=== PATIENT | male | born 1980 | race Caucasian/White ===

== ENCOUNTER → 2016-09-02 | Outpatient (REF) | payer MEDICAID ==
[~2016-09-02] MED LIST: /HALO1T OR; CATA0.3T OR; CETI10TA OR; CHLO200T OR; LUVOX PO; VICO5TAB OR
[2016-09-02 11:43] LABS: MEAN CORPUSCULAR HEMOGLOBIN 30.8 pg (27.0-33.0); MEAN CORPUSCULAR HGB CONC 34.8 g/dl (32.0-36.5); MEAN CORPUSCULAR VOLUME 88.7 fl (80.0-96.0); RED CELL DISTRIBUTION WIDTH 12.9 % (11.5-14.5)
[2016-09-02 12:15] LABS: ALBUMIN 3.6 GM/DL (3.2-5.2); ALBUMIN/GLOBULIN RATIO 0.92 (1.00-1.93); ALKALINE PHOSPHATASE 70 U/L (45-117); ALT/SGPT 44 U/L (12-78); ANION GAP 11 MEQ/L (8-16); AST/SGOT 26 U/L (15-37); BILIRUBIN,TOTAL 0.3 MG/DL (0.2-1.0); BLOOD UREA NITROGEN 15 MG/DL (7-18); CALCIUM LEVEL 8.8 MG/DL (8.5-10.1); CARBON DIOXIDE LEVEL 26 MEQ/L (21-32); CHLORIDE LEVEL 104 MEQ/L (98-107); CHOLESTEROL LEVEL 198 MG/DL (<200); CREATININE FOR GFR 0.95 MG/DL (0.70-1.30); GLOMERULAR FILTRATION RATE > 60.0 (>60); GLUCOSE, FASTING 81 MG/DL (70-105); POTASSIUM SERUM 4.3 MEQ/L (3.5-5.1); SODIUM LEVEL 141 MEQ/L (136-145); TOTAL PROTEIN 7.5 GM/DL (6.4-8.2); TRIGLYCERIDES LEVEL 297 MG/DL (<150)
== END ==
LOC: M SFHCPLAZ 09:33
PROVIDERS: ATTEND Family Medicine
DX: G47.33 Obstructive sleep apnea (adult) (pediatric) (principal); J30.9 Allergic rhinitis, unspecified; E78.5 Hyperlipidemia, unspecified; Z68.42 Body mass index [BMI] 45.0-49.9, adult

== ENCOUNTER 2016-11-10 18:38 | Emergency (ER) | payer MEDICAID ==
[~2016-11-10] VITALS: Ht 162.6 cm; Wt 119.7 kg
[2016-11-10] MEDS ORDERED: CLON-412 (18:51)
[2016-11-10] MEDS ORDERED: SIMV10TA2 (18:51)
[2016-11-10] MEDS ORDERED: HYDR-4274 (18:51)
[2016-11-10] MEDS ORDERED: DIVA500T9 (18:51)
[2016-11-10] MEDS ORDERED: CLOM50CA3 (18:51)
[2016-11-10] MEDS ORDERED: OLAN10TA2 (18:51)
[2016-11-10] MEDS ORDERED: RISP3TAB3 (18:51)
[2016-11-10] MEDS ORDERED: CEPH500C (18:51)
[2016-11-10] MEDS ORDERED: AUGMENTIN 875 MG TAB PO ONE (21:15)
[2016-11-10] MEDS ORDERED: ACETAMINOPH W/CODEINE #3 TAB UD PO ONE (21:15)
[2016-11-10] MEDS ORDERED: ACET30TAB PO (21:18)
[2016-11-10] MEDS ORDERED: AUGM875T27 PO (21:18)
[2016-11-10 21:24] VITALS: BP 154/86
== END 2016-11-10 21:31 | disposition home or self-care (01) ==
LOC: M ED 19:50
DX: L03.114 Cellulitis of left upper limb (principal); F79 Unspecified intellectual disabilities; E66.01 Morbid (severe) obesity due to excess calories; E78.00 Pure hypercholesterolemia, unspecified; Z79.899 Other long term (current) drug therapy; Z79.2 Long term (current) use of antibiotics

== ENCOUNTER 2016-11-15 11:59 | Emergency (ER) | payer MEDICAID ==
[~2016-11-15] VITALS: Ht 162.6 cm; Wt 119.7 kg
[2016-11-15 11:59] VITALS: BP 123/81
[~2016-11-15 11:59] MED LIST changes: +ACET30TAB PO; +AUGM875T27 PO; +CEPH500C; +CLOM50CA3; +CLON-412; +DIVA500T9; +HYDR-4274; +OLAN10TA2; +RISP3TAB3; +SIMV10TA2
[2016-11-15] MEDS ORDERED: SENN8.6T10 (12:12)
[2016-11-15] MEDS ORDERED: CLINDAMYCIN 150 MG CAP PO ONE (14:00)
[2016-11-15] MEDS ORDERED: CLEO300C2 PO (14:02)
== END 2016-11-15 14:51 | disposition home or self-care (01) ==
LOC: M ED 14:10
DX: L03.114 Cellulitis of left upper limb (principal); F79 Unspecified intellectual disabilities; G47.33 Obstructive sleep apnea (adult) (pediatric); F42.9 Obsessive-compulsive disorder, unspecified; F95.2 Tourette's disorder; Z79.899 Other long term (current) drug therapy

== ENCOUNTER → 2016-11-25 | Outpatient (CLI) | payer MEDICAID ==
[~2016-11-25] MED LIST changes: +CLEO300C2 PO; +SENN8.6T10
--- NOTE | 2016-11-25 15:29 | REP ---
KUB, TWO VIEWS: HISTORY: Constipation. Air is present in small and large intestine. There are no air fluid levels or dilated loops of intestine. There is no pneumoperitoneum. A large quantity of stool is present in the colon. IMPRESSION: 1. Nonspecific bowel gas pattern. 2. There is a large quantity of stool in the colon. Signed by Eleuterio Heck MD 11/25/2016 03:37 P
== END ==
LOC: M RAD 14:44
PROVIDERS: ATTEND Nurse Practitioner Family
DX: K59.00 Constipation, unspecified (principal)

== ENCOUNTER 2016-12-13 18:18 | Emergency (ER) | payer MEDICAID ==
[~2016-12-13] VITALS: Ht 162.6 cm; Wt 118.8 kg
[2016-12-13] MEDS ORDERED: BACT800T5 PO (22:13)
[2016-12-13 22:30] VITALS: BP 150/90
== END 2016-12-13 22:34 | disposition home or self-care (01) ==
LOC: M ED 22:04
DX: L03.113 Cellulitis of right upper limb (principal); S61.411A Laceration without foreign body of right hand, initial encounter; W45.8XXA Other foreign body or object entering through skin, initial encounter; Y92.832 Beach as the place of occurrence of the external cause; Y93.9 Activity, unspecified; Y99.9 Unspecified external cause status; F79 Unspecified intellectual disabilities; E66.9 Obesity, unspecified; Z79.899 Other long term (current) drug therapy

== ENCOUNTER → 2017-09-08 | Outpatient (REF) | payer MEDICAID ==
[2017-09-08 13:10] LABS: ALBUMIN 3.8 GM/DL (3.2-5.2); ALBUMIN/GLOBULIN RATIO 1.09 (1.00-1.93); ALKALINE PHOSPHATASE 72 U/L (45-117); ALT/SGPT 51 U/L (12-78); ANION GAP 8 MEQ/L (8-16); AST/SGOT 24 U/L (7-37); BILIRUBIN,TOTAL 0.4 MG/DL (0.2-1.0); BLOOD UREA NITROGEN 12 MG/DL (7-18); CALCIUM LEVEL 8.7 MG/DL (8.5-10.1); CARBON DIOXIDE LEVEL 26 MEQ/L (21-32); CHLORIDE LEVEL 106 MEQ/L (98-107); CHOLESTEROL LEVEL 180 MG/DL (<200); CREATININE FOR GFR 0.83 MG/DL (0.70-1.30); GLOMERULAR FILTRATION RATE > 60.0 (>60); GLUCOSE, FASTING 77 MG/DL (70-100); HDL CHOLESTEROL 36 MG/DL (>40); LDL CHOLESTEROL 86.8 MG/DL (<100); NON-HDL-C 144 MG/DL; POTASSIUM SERUM 4.4 MEQ/L (3.5-5.1); SODIUM LEVEL 140 MEQ/L (136-145); TOTAL PROTEIN 7.3 GM/DL (6.4-8.2); TRIGLYCERIDES LEVEL 286 MG/DL (<150)
[2017-09-08 13:11] LABS: HEMATOCRIT 43.2 % (42.0-52.0); HEMOGLOBIN 14.9 g/dl (14.0-18.0); MEAN CORPUSCULAR HEMOGLOBIN 29.7 pg (27.0-33.0); MEAN CORPUSCULAR HGB CONC 34.5 g/dl (32.0-36.5); MEAN CORPUSCULAR VOLUME 86.1 fl (80.0-96.0); PLATELET COUNT, AUTOMATED 184 10^3/uL (150-450); RED BLOOD COUNT 5.02 10^6/uL (4.30-6.10); RED CELL DISTRIBUTION WIDTH 13.1 % (11.5-14.5); WHITE BLOOD COUNT 5.4 10^3/uL (4.0-10.0)
== END ==
LOC: M SFHCPLAZ 08:18
DX: G47.33 Obstructive sleep apnea (adult) (pediatric) (principal); J30.9 Allergic rhinitis, unspecified; Z68.42 Body mass index [BMI] 45.0-49.9, adult

== ENCOUNTER 2018-03-07 12:41 | Emergency (ER) | payer MEDICARE, MEDICAID | END 2018-03-07 15:13 | disposition home or self-care (01) | LOC: M ED 12:41 | DX: K59.00 Constipation, unspecified (principal); F95.2 Tourette's disorder; F79 Unspecified intellectual disabilities; Z79.899 Other long term (current) drug therapy | CPT/HCPCS: 74018 ==

== ENCOUNTER → 2018-05-02 | Outpatient (REF) | payer MEDICARE, MEDICAID ==
[2018-05-02 22:25] LABS: APPEARANCE, URINE HAZY (CLEAR); BACTERIA, URINE AUTO NEGATIVE (NEGATIVE); BILIRUBIN, URINE AUTO NEGATIVE (NEGATIVE); BLOOD, URINE BLOOD 2+ (NEGATIVE); CALCIUM OXALATE CRYSTALS SMALL; COLOR, URINE YELLOW (YELLOW); GLUCOSE, URINE (UA) AUTO NEGATIVE (NEGATIVE); KETONE, URINE AUTO TRACE mg/dL (NEGATIVE); LEUKOCYTE ESTERASE, URINE AUTO NEGATIVE (NEGATIVE); MUCUS, URINE SMALL (NEGATIVE); NITRITE, URINE AUTO NEGATIVE (NEGATIVE); PROTEIN, URINE AUTO 1+ mg/dL (NEGATIVE); RBC, URINE AUTO 26 /HPF (0-3); SQUAMOUS EPITHELIAL CELL UR AU 0 /HPF (0-6); WBC, URINE AUTO 0 /HPF (0-3)
== END ==
LOC: M LAB REF 22:06
DX: N39.0 Urinary tract infection, site not specified (principal)

== ENCOUNTER → 2018-05-02 | Outpatient (CLI) | payer MEDICARE, MEDICAID ==
[2018-05-02 20:25] LABS: PLATELET COUNT, AUTOMATED 191 10^3/uL (150-450)
[2018-05-02 20:58] LABS: ALBUMIN 3.6 GM/DL (3.2-5.2); ALBUMIN/GLOBULIN RATIO 1.13 (1.00-1.93); ALKALINE PHOSPHATASE 78 U/L (45-117); ALT/SGPT 40 U/L (12-78); AST/SGOT 19 U/L (7-37); BILIRUBIN,DIRECT < 0.1 MG/DL (0.0-0.2); BILIRUBIN,TOTAL 0.2 MG/DL (0.2-1.0); TOTAL PROTEIN 6.8 GM/DL (6.4-8.2); VALPROIC ACID (DEPAKOTE) 51.5 UG/ML (50.0-100.0)
== END ==
LOC: M LAB 19:39
DX: N39.0 Urinary tract infection, site not specified (principal); Z79.899 Other long term (current) drug therapy
CPT/HCPCS: 80164

== ENCOUNTER → 2018-05-05 | Outpatient (REF) | payer MEDICARE, MEDICAID ==
[2018-05-05 17:33] LABS: ALBUMIN 4.1 GM/DL (3.2-5.2); ANION GAP 7 MEQ/L (8-16); BLOOD UREA NITROGEN 10 MG/DL (7-18); CALCIUM LEVEL 9.3 MG/DL (8.5-10.1); CARBON DIOXIDE LEVEL 27 MEQ/L (21-32); CHLORIDE LEVEL 106 MEQ/L (98-107); CREATININE FOR GFR 0.86 MG/DL (0.70-1.30); GLOMERULAR FILTRATION RATE > 60.0 (>60); GLUCOSE, FASTING 63 MG/DL (70-100); PHOSPHORUS LEVEL 3.5 MG/DL (2.5-4.9); POTASSIUM SERUM 4.2 MEQ/L (3.5-5.1); SODIUM LEVEL 140 MEQ/L (136-145)
[2018-05-05 17:41] LABS: APPEARANCE, URINE CLEAR (CLEAR); BACTERIA, URINE AUTO NEGATIVE (NEGATIVE); BILIRUBIN, URINE AUTO NEGATIVE (NEGATIVE); BLOOD, URINE BLOOD NEGATIVE (NEGATIVE); COLOR, URINE YELLOW (YELLOW); GLUCOSE, URINE (UA) AUTO 1+ mg/dL (NEGATIVE); KETONE, URINE AUTO TRACE mg/dL (NEGATIVE); LEUKOCYTE ESTERASE, URINE AUTO NEGATIVE (NEGATIVE); MUCUS, URINE SMALL (NEGATIVE); NITRITE, URINE AUTO NEGATIVE (NEGATIVE); PROTEIN, URINE AUTO NEGATIVE (NEGATIVE); RBC, URINE AUTO 3 /HPF (0-3); SPECIFIC GRAVITY URINE AUTO 1.023 (1.002-1.035); SQUAMOUS EPITHELIAL CELL UR AU 0 /HPF (0-6); WBC, URINE AUTO 0 /HPF (0-3)
== END ==
LOC: M SFHCPLAZ 15:08
DX: R31.21 Asymptomatic microscopic hematuria (principal); Z23 Encounter for immunization
CPT/HCPCS: 80069

== ENCOUNTER → 2018-09-11 | Outpatient (REF) | payer MEDICARE, MEDICAID ==
[~2018-09-11] MED LIST changes: -AUGM875T27 PO; +AUGM875T28 PO; +BACT800T5 PO; -HYDR-4274; +HYDR50TA70; +MIRA3350 PO; +SENN1TAB10; -SENN8.6T10
[2018-09-11 20:29] LABS: APPEARANCE, URINE HAZY (CLEAR); BACTERIA, URINE AUTO NEGATIVE (NEGATIVE); BILIRUBIN, URINE AUTO NEGATIVE (NEGATIVE); BLOOD, URINE BLOOD NEGATIVE (NEGATIVE); CALCIUM OXALATE CRYSTALS MODERATE; COLOR, URINE YELLOW (YELLOW); GLUCOSE, URINE (UA) AUTO NEGATIVE (NEGATIVE); KETONE, URINE AUTO NEGATIVE (NEGATIVE); LEUKOCYTE ESTERASE, URINE AUTO NEGATIVE (NEGATIVE); MUCUS, URINE SMALL (NEGATIVE); NITRITE, URINE AUTO NEGATIVE (NEGATIVE); PROTEIN, URINE AUTO 1+ mg/dL (NEGATIVE); RBC, URINE AUTO 0 /HPF (0-3); SPECIFIC GRAVITY URINE AUTO 1.028 (1.002-1.035); SQUAMOUS EPITHELIAL CELL UR AU 0 /HPF (0-6); WBC, URINE AUTO 2 /HPF (0-3)
== END ==
LOC: M LAB REF 10:38
PROVIDERS: ATTEND Physician Assistant Medical
DX: N39.0 Urinary tract infection, site not specified (principal)

== ENCOUNTER → 2019-05-14 | Outpatient (REF) | payer MEDICARE, MEDICAID ==
[~2019-05-14] MED LIST changes: -/HALO1T OR; +ACET-716 PO; -ACET30TAB PO; +HALO1TAB20 OR
[2019-05-14 10:45] LABS: ALBUMIN 3.6 GM/DL (3.2-5.2); ALT/SGPT 35 U/L (12-78); BILIRUBIN,TOTAL 0.3 MG/DL (0.2-1.0); BLOOD UREA NITROGEN 14 MG/DL (7-18); CARBON DIOXIDE LEVEL 27 MEQ/L (21-32); CHLORIDE LEVEL 106 MEQ/L (98-107); CHOLESTEROL LEVEL 196 MG/DL (<200); CREATININE FOR GFR 0.91 MG/DL (0.70-1.30); GLOMERULAR FILTRATION RATE > 60.0 (>60); GLUCOSE, FASTING 90 MG/DL (70-100); HDL CHOLESTEROL 40 MG/DL (>40); LDL CHOLESTEROL 95 MG/DL (<100); NON-HDL-C 156 MG/DL; POTASSIUM SERUM 4.3 MEQ/L (3.5-5.1); SODIUM LEVEL 141 MEQ/L (136-145); TRIGLYCERIDES LEVEL 304 MG/DL (<150)
== END ==
LOC: M SFHCPLAZ 08:12
PROVIDERS: ATTEND Family Medicine
DX: E78.5 Hyperlipidemia, unspecified (principal); G47.33 Obstructive sleep apnea (adult) (pediatric); Z68.42 Body mass index [BMI] 45.0-49.9, adult

== ENCOUNTER 2020-05-19 14:45 | Emergency (ER) | payer MEDICARE, MEDICAID ==
[~2020-05-19] VITALS: Ht 162.6 cm; Wt 115.9 kg
[~2020-05-19 14:45] MED LIST changes: -SIMV10TA2; +SIMV10TA21
--- NOTE | 2020-05-19 15:30 | REP ---
INDICATION: constipation x1wk r/o obstruction. COMPARISON: 03/07/2018 FINDINGS: KUB shows the intestinal gas pattern to be nonspecific. The organ silhouettes insofar as delineated are unremarkable. There is no evidence of free intraperitoneal air. There is a large amount of content in the region of the descending colon, sigmoid colon, and rectosigmoid region. IMPRESSION: Findings consistent with clinical constipation. Fecal impaction cannot be ruled out. <Electronically signed by Ezra Magdaleno > 05/19/20 1524
[2020-05-19 16:12] LABS: BASO % 0.1 % (0.0-1.0); HEMATOCRIT 47.6 % (42.0-52.0); HEMOGLOBIN 16.7 g/dl (13.5-17.5); LYMPH # 2.7 10^3/uL (1.5-5.0); MEAN CORPUSCULAR HEMOGLOBIN 29.8 pg (27.0-33.0); MEAN CORPUSCULAR HGB CONC 35.1 g/dl (32.0-36.5); MONO # 0.5 10^3/uL (0.0-0.8); MONO % 7.1 % (0.0-5.0); NEUTROPHILS # 3.9 10^3/uL (1.5-8.5); NEUTROPHILS % 54.1 % (36.0-66.0); PLATELET COUNT, AUTOMATED 207 10^3/uL (150-450); WHITE BLOOD COUNT 7.2 10^3/uL (4.0-10.0)
[2020-05-19 16:36] LABS: ALBUMIN 4.2 GM/DL (3.2-5.2); ALT/SGPT 36 U/L (12-78); BILIRUBIN,DIRECT 0.1 MG/DL (0.0-0.2); BILIRUBIN,TOTAL 0.5 MG/DL (0.2-1.0); BLOOD UREA NITROGEN 17 MG/DL (7-18); CARBON DIOXIDE LEVEL 24 MEQ/L (21-32); CHLORIDE LEVEL 108 MEQ/L (98-107); CREATININE FOR GFR 1.01 MG/DL (0.70-1.30); GLOMERULAR FILTRATION RATE > 60.0 (>60); GLUCOSE, FASTING 98 MG/DL (70-100); LIPASE 144 U/L (73-393); POTASSIUM SERUM 4.2 MEQ/L (3.5-5.1); SODIUM LEVEL 140 MEQ/L (136-145); TOTAL PROTEIN 7.4 GM/DL (6.4-8.2)
[2020-05-19] MEDS ORDERED: MAGNESIUM CITRATE 300 ML BTL PO ONE (17:00)
[2020-05-19] MEDS ORDERED: GLYCERIN ADULT SUPP PR ONE (17:00)
[2020-05-19] MEDS ORDERED: COLA100C5 PO (17:04)
[2020-05-19] MEDS ORDERED: MIRA3350 PO (17:46)
[2020-05-19 18:00] VITALS: BP 133/86
== END 2020-05-19 18:10 | disposition home or self-care (01) ==
LOC: M ED 14:45
DX: K59.09 Other constipation (principal); R11.0 Nausea; F90.9 Attention-deficit hyperactivity disorder, unspecified type; F42.9 Obsessive-compulsive disorder, unspecified; F79 Unspecified intellectual disabilities; F95.2 Tourette's disorder; Z79.899 Other long term (current) drug therapy

== ENCOUNTER → 2020-05-27 | Outpatient (REF) | payer MEDICARE, MEDICAID ==
[~2020-05-27] MED LIST changes: +COLA100C5 PO
[2020-05-27 12:38] LABS: HEMATOCRIT 47.4 % (42.0-52.0); HEMOGLOBIN 16.3 g/dl (13.5-17.5); MEAN CORPUSCULAR HEMOGLOBIN 30.2 pg (27.0-33.0); MEAN CORPUSCULAR HGB CONC 34.4 g/dl (32.0-36.5); MEAN CORPUSCULAR VOLUME 87.8 fl (80.0-96.0); PLATELET COUNT, AUTOMATED 189 10^3/uL (150-450); WHITE BLOOD COUNT 5.3 10^3/uL (4.0-10.0)
[2020-05-27 13:27] LABS: ALT/SGPT 36 U/L (12-78); BILIRUBIN,TOTAL 0.4 MG/DL (0.2-1.0); BLOOD UREA NITROGEN 13 MG/DL (7-18); CALCIUM LEVEL 8.9 MG/DL (8.5-10.1); CARBON DIOXIDE LEVEL 27 MEQ/L (21-32); CHLORIDE LEVEL 105 MEQ/L (98-107); CHOLESTEROL LEVEL 217 MG/DL (<200); CREATININE FOR GFR 1.02 MG/DL (0.70-1.30); GLOMERULAR FILTRATION RATE > 60.0 (>60); GLUCOSE, FASTING 86 MG/DL (70-100); HDL CHOLESTEROL 38 MG/DL (>40); LDL CHOLESTEROL 117 MG/DL (<100); NON-HDL-C 179 MG/DL; POTASSIUM SERUM 4.2 MEQ/L (3.5-5.1); SODIUM LEVEL 140 MEQ/L (136-145); THYROID STIMULATING HORMONE 0.986 uIU/ML (0.358-3.740); TOTAL PROTEIN 7.4 GM/DL (6.4-8.2); TRIGLYCERIDES LEVEL 310 MG/DL (<150)
== END ==
LOC: M PLALAB 10:32
PROVIDERS: ATTEND Family Medicine
DX: F60.89 Other specific personality disorders (principal); G47.33 Obstructive sleep apnea (adult) (pediatric); E78.5 Hyperlipidemia, unspecified; E66.01 Morbid (severe) obesity due to excess calories

== ENCOUNTER → 2021-06-01 | Outpatient (REF) | payer MEDICARE, MEDICAID ==
[~2021-06-01] MED LIST changes: -OLAN10TA2; +OLAN1TAB20; +RISP-10; -RISP3TAB3
[2021-06-01 18:07] LABS: HEMOGLOBIN A1c 5.6 %
[2021-06-01 18:19] LABS: ALBUMIN 3.8 GM/DL (3.2-5.2); ALT/SGPT 31 U/L (12-78); BILIRUBIN,TOTAL 0.3 MG/DL (0.2-1.0); BLOOD UREA NITROGEN 13 MG/DL (7-18); CALCIUM LEVEL 9.1 MG/DL (8.5-10.1); CARBON DIOXIDE LEVEL 25 MEQ/L (21-32); CHLORIDE LEVEL 106 MEQ/L (98-107); CHOLESTEROL LEVEL 189 MG/DL (<200); CHOLESTEROL RISK RATIO 4.973 (<5); CREATININE FOR GFR 0.85 MG/DL (0.70-1.30); GLOMERULAR FILTRATION RATE > 60.0 (>60); GLUCOSE, FASTING 96 MG/DL (70-100); HDL CHOLESTEROL 38 MG/DL (>40); LDL CHOLESTEROL 102 MG/DL (<100); NON-HDL-C 151 MG/DL; POTASSIUM SERUM 4.5 MEQ/L (3.5-5.1); SODIUM LEVEL 140 MEQ/L (136-145); TOTAL PROTEIN 7.5 GM/DL (6.4-8.2); TRIGLYCERIDES LEVEL 245 MG/DL (<150)
== END ==
LOC: M SFHCADAM 13:43
PROVIDERS: ATTEND Family Medicine
DX: E78.5 Hyperlipidemia, unspecified (principal); Z13.1 Encounter for screening for diabetes mellitus; E66.01 Morbid (severe) obesity due to excess calories; F60.89 Other specific personality disorders

== ENCOUNTER → 2021-11-24 | Outpatient (CLI) | payer MEDICARE, MEDICAID ==
[2021-11-24 18:05] LABS: BASO % 0.3 % (0.0-1.0); EOS % 0.2 % (0.0-3.0); HEMATOCRIT 41.3 % (42.0-52.0); HEMOGLOBIN 14.1 g/dl (13.5-17.5); LYMPH % 31.3 % (24.0-44.0); MEAN CORPUSCULAR HEMOGLOBIN 29.9 pg (27.0-33.0); MEAN CORPUSCULAR HGB CONC 34.1 g/dl (32.0-36.5); MEAN CORPUSCULAR VOLUME 87.7 fl (80.0-96.0); MONO # 0.4 10^3/uL (0.0-0.8); MONO % 6.7 % (2.0-8.0); NEUTROPHILS # 3.9 10^3/uL (1.5-8.5); NEUTROPHILS % 60.4 % (36.0-66.0); PLATELET COUNT, AUTOMATED 202 10^3/uL (150-450); RED BLOOD COUNT 4.71 10^6/uL (4.30-6.10); WHITE BLOOD COUNT 6.4 10^3/uL (4.0-10.0)
[2021-11-24 18:30] LABS: ALBUMIN 3.7 GM/DL (3.2-5.2); ALT/SGPT 26 U/L (12-78); BILIRUBIN,TOTAL 0.2 MG/DL (0.2-1.0); BLOOD UREA NITROGEN 13 MG/DL (7-18); CALCIUM LEVEL 9.4 MG/DL (8.5-10.1); CARBON DIOXIDE LEVEL 26 MEQ/L (21-32); CHLORIDE LEVEL 108 MEQ/L (98-107); CREATININE FOR GFR 0.82 MG/DL (0.70-1.30); FREE T4 0.72 NG/DL (0.76-1.46); GLOMERULAR FILTRATION RATE > 60.0 (>60); GLUCOSE, FASTING 96 MG/DL (70-100); POTASSIUM SERUM 4.5 MEQ/L (3.5-5.1); SODIUM LEVEL 136 MEQ/L (136-145); TOTAL PROTEIN 7.5 GM/DL (6.4-8.2)
[2021-11-25 11:09] LABS: APPEARANCE, URINE CLEAR (CLEAR); BACTERIA, URINE AUTO NEGATIVE (NEGATIVE); BILIRUBIN, URINE AUTO NEGATIVE (NEGATIVE); BLOOD, URINE BLOOD NEGATIVE (NEGATIVE); COLOR, URINE YELLOW (YELLOW); GLUCOSE, URINE (UA) AUTO 3+ mg/dL (NEGATIVE); KETONE, URINE AUTO TRACE mg/dL (NEGATIVE); LEUKOCYTE ESTERASE, URINE AUTO NEGATIVE (NEGATIVE); MUCUS, URINE SMALL (NEGATIVE); NITRITE, URINE AUTO NEGATIVE (NEGATIVE); PROTEIN, URINE AUTO NEGATIVE (NEGATIVE); RBC, URINE AUTO 1 /HPF (0-3); SPECIFIC GRAVITY URINE AUTO 1.022 (1.002-1.035); SQUAMOUS EPITHELIAL CELL UR AU 0 /HPF (0-6); WBC, URINE AUTO 0 /HPF (0-3)
== END ==
LOC: M LAB 17:29
PROVIDERS: ATTEND Physician Assistant
DX: R30.0 Dysuria (principal); R81 Glycosuria; Z79.899 Other long term (current) drug therapy

== ENCOUNTER → 2022-06-04 | Outpatient (REF) | payer MEDICARE, MEDICAID | LOC: M SFHCPLAZ 16:47 | PROVIDERS: ATTEND Physician Assistant | DX: R30.0 Dysuria (principal) ==

== ENCOUNTER → 2022-06-12 | Outpatient (CLI) | payer MEDICARE, MEDICAID ==
[2022-06-12 14:31] LABS: CREATININE, URINE 233.7 MG/DL
[2022-06-12 14:36] LABS: ALBUMIN 4.1 G/DL (3.2-5.2); ALKALINE PHOSPHATASE 96 U/L (46-116); ALT/SGPT 31 U/L (7.0-40); AST/SGOT 19 U/L (<34); BILIRUBIN,TOTAL 0.4 MG/DL (0.3-1.2); BLOOD UREA NITROGEN 13 MG/DL (9-23); CALCIUM LEVEL 9.6 MG/DL (8.5-10.1); CARBON DIOXIDE LEVEL 25 MMOL/L (20-31); CHLORIDE LEVEL 102 MMOL/L (98-107); CHOLESTEROL LEVEL 221 MG/DL (<200); CHOLESTEROL RISK RATIO 5.23 (<5); CREATININE FOR GFR 0.75 MG/DL (0.70-1.30); GLOMERULAR FILTRATION RATE > 60.0 (>60); GLUCOSE, FASTING 101 MG/DL (60-100); HDL CHOLESTEROL 42.2 MG/DL (>40); NON-HDL-C 179 MG/DL; POTASSIUM SERUM 4.4 MMOL/L (3.5-5.1); SODIUM LEVEL 138 MMOL/L (136-145); TOTAL PROTEIN 7.7 G/DL (5.7-8.2); TRIGLYCERIDES LEVEL 339 MG/DL (<150)
[2022-06-12 14:38] LABS: FREE T4 0.71 NG/DL (0.89-1.76); THYROID STIMULATING HORMONE 0.897 uIU/ML (0.55-4.78)
[2022-06-12 19:05] LABS: HEMOGLOBIN A1c 5.7 % (4.0-6.0)
== END ==
LOC: M LAB 13:28
PROVIDERS: ATTEND Family Medicine
DX: R73.01 Impaired fasting glucose (principal); Z13.1 Encounter for screening for diabetes mellitus; E78.5 Hyperlipidemia, unspecified; I10 Essential (primary) hypertension; Z13.29 Encounter for screening for other suspected endocrine disorder

== ENCOUNTER → 2024-01-10 | Outpatient (REF) | payer MEDICARE, MEDICAID ==
[~2024-01-10] MED LIST changes: +CLOM1CAP4; -CLOM50CA3; -RISP-10; +RISP3TAB77
== END ==
LOC: M SFHCPLAZ 12:17
PROVIDERS: ATTEND Student in an Organized Health Care Education/Training Program
DX: J00 Acute nasopharyngitis [common cold] (principal)

== ENCOUNTER → 2024-01-24 | Outpatient (REF) | payer MEDICARE, MEDICAID ==
[2024-01-24 13:12] LABS: HEMATOCRIT 45.2 % (42.0-52.0); MEAN CORPUSCULAR HEMOGLOBIN 29.4 pg (27.0-33.0); MEAN CORPUSCULAR HGB CONC 33.2 g/dl (32.0-36.5); MEAN CORPUSCULAR VOLUME 88.6 fl (80.0-96.0); PLATELET COUNT, AUTOMATED 221 10^3/uL (150-450)
[2024-01-24 13:22] LABS: HEMOGLOBIN A1c 5.9 % (4.0-6.0)
[2024-01-24 13:35] LABS: THYROID STIMULATING HORMONE 1.259 uIU/ML (0.55-4.78)
[2024-01-24 13:36] LABS: ALKALINE PHOSPHATASE 86 U/L (46-116); ALT/SGPT 34 U/L (7.0-40); AST/SGOT 16 U/L (<34); BILIRUBIN,TOTAL 0.4 MG/DL (0.3-1.2); BLOOD UREA NITROGEN 15 MG/DL (9-23); CALCIUM LEVEL 9.8 MG/DL (8.5-10.1); CARBON DIOXIDE LEVEL 29 MMOL/L (20-31); CHLORIDE LEVEL 105 MMOL/L (98-107); CHOLESTEROL LEVEL 233 MG/DL (<200); CHOLESTEROL RISK RATIO 5.69 (<5); CREATININE FOR GFR 0.82 MG/DL (0.70-1.30); GLOMERULAR FILTRATION RATE > 60.0 (>60); GLUCOSE, FASTING 122 MG/DL (60-100); HDL CHOLESTEROL 40.9 MG/DL (>40); LDL CHOLESTEROL 117.5 MG/DL (<100); NON-HDL-C 192.1 MG/DL; POTASSIUM SERUM 4.3 MMOL/L (3.5-5.1); SODIUM LEVEL 142 MMOL/L (136-145); TOTAL PROTEIN 7.1 G/DL (5.7-8.2); TRIGLYCERIDES LEVEL 373 MG/DL (<150)
== END ==
LOC: M SFHCPLAZ 08:50
PROVIDERS: ATTEND Family Medicine
DX: F79 Unspecified intellectual disabilities (principal); K59.00 Constipation, unspecified; G47.33 Obstructive sleep apnea (adult) (pediatric); E78.5 Hyperlipidemia, unspecified; R73.02 Impaired glucose tolerance (oral)

== ENCOUNTER → 2024-08-22 | Outpatient (REF) | payer MEDICARE, MEDICAID ==
[2024-08-22 18:03] LABS: CHOLESTEROL RISK RATIO 5.1 (<5); HDL CHOLESTEROL 43.5 MG/DL (>40); LDL CHOLESTEROL 140.5 MG/DL (<100); NON-HDL-C 178.5 MG/DL
[2024-08-22 18:09] LABS: HEMOGLOBIN A1c 6.5 % (4.0-6.0)
== END ==
LOC: M SFHCADAM 13:54
PROVIDERS: ATTEND Family Medicine
DX: E78.5 Hyperlipidemia, unspecified (principal); R73.01 Impaired fasting glucose

== ENCOUNTER → 2024-08-24 | Outpatient (CLI) | payer MEDICARE, MEDICAID ==
[2024-08-24 14:07] LABS: BASO % 0.2 % (0.0-1.0); HEMATOCRIT 43.3 % (42.0-52.0); HEMOGLOBIN 14.8 g/dl (13.5-17.5); LYMPH # 1.5 10^3/uL (1.5-5.0); LYMPH % 28.8 % (24.0-44.0); MEAN CORPUSCULAR HEMOGLOBIN 29.2 pg (27.0-33.0); MEAN CORPUSCULAR HGB CONC 34.2 g/dl (32.0-36.5); MEAN CORPUSCULAR VOLUME 85.4 fl (80.0-96.0); MONO # 0.3 10^3/uL (0.0-0.8); MONO % 5.9 % (2.0-8.0); NEUTROPHILS # 3.3 10^3/uL (1.5-8.5); NEUTROPHILS % 64.7 % (36.0-66.0); PLATELET COUNT, AUTOMATED 221 10^3/uL (150-450); RED BLOOD COUNT 5.07 10^6/uL (4.30-6.10); WHITE BLOOD COUNT 5.1 10^3/uL (4.0-10.0)
[2024-08-24 14:26] LABS: ALBUMIN 3.6 G/DL (3.2-5.2); ALKALINE PHOSPHATASE 89 U/L (40-129); ALT/SGPT 28 U/L (7.0-40); AST/SGOT 18 U/L (<34); BILIRUBIN,DIRECT < 0.1 MG/DL (<0.4); BILIRUBIN,TOTAL 0.3 MG/DL (0.3-1.2); BLOOD UREA NITROGEN 15 MG/DL (9-23); CARBON DIOXIDE LEVEL 27 MMOL/L (20-31); CHLORIDE LEVEL 105 MMOL/L (98-107); CREATININE FOR GFR 0.65 MG/DL (0.70-1.30); GLOMERULAR FILTRATION RATE > 60.0 (>60); GLUCOSE, FASTING 189 MG/DL (60-100); MAGNESIUM LEVEL 1.7 MG/DL (1.8-2.4); PHOSPHORUS LEVEL 3.7 MG/DL (2.5-4.9); POTASSIUM SERUM 4.2 MMOL/L (3.5-5.1); SODIUM LEVEL 143 MMOL/L (136-145); TOTAL PROTEIN 7.1 G/DL (5.7-8.2)
== END ==
LOC: M PLALAB 12:06
PROVIDERS: ATTEND Student in an Organized Health Care Education/Training Program
DX: Z00.00 Encounter for general adult medical examination without abnormal findings (principal)

== ENCOUNTER → 2024-10-08 | Outpatient (CLI) | payer MEDICARE, MEDICAID ==
[2024-10-08 14:32] LABS: CHOLESTEROL RISK RATIO 4.51 (<5); HDL CHOLESTEROL 35.2 MG/DL (>40); NON-HDL-C 123.8 MG/DL
[2024-10-08 14:39] LABS: HEMOGLOBIN A1c 6.3 % (4.0-6.0)
== END ==
LOC: M PLALAB 09:41
PROVIDERS: ATTEND Student in an Organized Health Care Education/Training Program
DX: E78.5 Hyperlipidemia, unspecified (principal); Z79.899 Other long term (current) drug therapy

== ENCOUNTER → 2025-01-26 | Outpatient (REF) | payer MEDICARE, MEDICAID | LOC: M SFHCPLAZ 21:12 | PROVIDERS: ATTEND Family Medicine | DX: Z53.9 Procedure and treatment not carried out, unspecified reason (principal) ==

== ENCOUNTER → 2025-02-18 | Outpatient (REF) | payer MEDICARE, MEDICAID ==
[2025-02-18 14:30] LABS: PLATELET COUNT, AUTOMATED 222 10^3/uL (150-450)
[2025-02-18 14:39] LABS: VITAMIN B12 LEVEL 597 PG/ML (211-911)
== END ==
LOC: M SFHCADAM 09:17
DX: K14.1 Geographic tongue (principal)